=== PATIENT | male | born 1955 | race Two or more races ===

== ENCOUNTER 2022-08-11 13:37 | Emergency (ER) | payer OTHER ==
[~2022-08-11] VITALS: Ht 165.1 cm; Wt 64.9 kg
[~2022-08-11 13:37] MED LIST: DURICEF500 MG PO; RELAFEN500 MG PO
[2022-08-11] MEDS ORDERED: LISINOPRIL5 MG PO (13:53)
[2022-08-11] MEDS ORDERED: SYNJARDY 12.5-1 EACH PO (13:53)
[2022-08-11] MEDS ORDERED: GLIPIZIDE10 MG PO (13:54)
== END 2022-08-11 16:12 | disposition home or self-care (01) ==
LOC: ER 13:37
DX: S00.93XA Contusion of unspecified part of head, initial encounter (principal); W18.30XA Fall on same level, unspecified, initial encounter; Y93.9 Activity, unspecified; Y92.89 Other specified places as the place of occurrence of the external cause; Y99.9 Unspecified external cause status; E11.9 Type 2 diabetes mellitus without complications; Z79.84 Long term (current) use of oral hypoglycemic drugs

== ENCOUNTER → 2025-07-20 | Emergency (ER) | payer OTHER ==
[~2025-07-20] VITALS: Ht 165.1 cm; Wt 63.5 kg
[~2025-07-20] MED LIST changes: +ATORVASTATIN CA20 MG PO; +GENTAMICIN SULFATE 0.15 MG/DR DROPS 5ML OP ONE; +GLIPIZIDE10 MG PO; +LISINOPRIL5 MG PO; +SOD BORATE/BORIC AC/WATER/NACL 120 ML BOTTLE OP ONE; +SYNJARDY 12.5-1 EACH PO; +TOBRAMYCIN 20 DR/ML DROPS 5ML BOTTLE OP ONE; +TRIJARDY XR 121 EACH PO
[2025-07-20 13:00] VITALS: BP 143/80; O2SAT 97
== END | disposition home or self-care (01) ==
LOC: ER 12:03
DX: H10.89 Other conjunctivitis (principal); E11.9 Type 2 diabetes mellitus without complications; Z79.84 Long term (current) use of oral hypoglycemic drugs

== ENCOUNTER 2025-07-21 09:01 | Emergency (ER) | payer OTHER ==
[~2025-07-21] VITALS: Ht 165.1 cm; Wt 63.5 kg
[~2025-07-21 09:01] MED LIST changes: -GENTAMICIN SULFATE 0.15 MG/DR DROPS 5ML OP ONE; -SOD BORATE/BORIC AC/WATER/NACL 120 ML BOTTLE OP ONE; -TOBRAMYCIN 20 DR/ML DROPS 5ML BOTTLE OP ONE
== END 2025-07-21 10:10 | disposition home or self-care (01) ==
LOC: ER 09:02
DX: H10.89 Other conjunctivitis (principal); E11.9 Type 2 diabetes mellitus without complications; Z79.84 Long term (current) use of oral hypoglycemic drugs